=== PATIENT | male | born 1940 | race Caucasian/White ===

== ENCOUNTER 2020-03-02 12:14 | Emergency (ER) | payer MEDICARE, SELFPAY ==
[2020-03-02 12:23] VITALS: BP 116/74; PULSE 90; RESP 20; TEMP 36.3; O2SAT 96
--- NOTE | 2020-03-02 12:48 | ED.URI ---
HPI - URI/Sore Throat General Chief Complaint: Upper Respiratory Infection Stated Complaint: headache/ear pain/jaw pain Time Seen by Provider: 03/02/20 12:49 Source: patient Mode of arrival: ambulatory Limitations: no limitations History of Present Illness HPI Narrative: Jai Figueredo is an 79 yo male with a PMH of Stage 4 prostate CA, GERD. macular degeneration, has who c/o R eye pain and sinus discomfort. States has problems with sinuses for years, has been having congestion in the morning 1 hour upon awakening Patient is being treated for stage IV prostate cancer by [facility], he was told in January that his disease is advancing, they will put him on tablets (questionable Lupron) the cost $10,000 a month and he is unsure whether he will be able to pay for that. Doctors office will try to work with him on cost; scheduled to get a full body scan in the beginning of April before going back [facility] Related Data Home Medications Medication Instructions Recorded Confirmed Prilosec 03/02/20 celecoxib mg 03/02/20 tamsulosin 03/02/20 Allergies Allergy/AdvReac Type Severity Reaction Status Date / Time Penicillins Allergy Unknown Hives Verified 03/02/20 12:54 prednisone Allergy Unknown heartburn Verified 03/02/20 12:54 Review of Systems Review of Systems: Narrative: CONSTITUTIONAL: Denies fever, chills, sweats. EYES: Denies visual changes, redness, discharge. ENT: Denies rhinorrhea, congestion, sore throat, otalgia. CARDIOVASCULAR: Denies chest pain, palpitations, edema. RESPIRATORY: Denies dyspnea, wheezing, cough right-sided sinus tenderness, not dissimilar from the symptoms he normally experiences GASTROINTESTINAL: Denies abdominal pain, nausea, vomiting, diarrhea. GENITOURINARY: Denies dysuria, hematuria, abnormal discharge SKIN: Denies rash or itching. NEUROLOGIC: Denies numbness, or focal weakness. PSYCHIATRIC: Denies anxiety or depression. [facility] Family History Family History Father Family history of gastrointestinal disorder Family history of genitourinary disease Mother Acute myocardial infarction Family history of heart disease in male family member before age 55 Family history of cardiovascular disease Other Family history of arthritis Social History Social History Smoking status: Former smoker Second hand tobacco smoke exposure: No Smoking end date: 09/06/86 Alcohol intake: never Gender identity (if verbalized by the patient): Male Comments At time of signature, I agree with nursing past medical, surgical, social and family history. There is no relevant family history pertinent to the presenting complaint. Exam Narrative: Exam Narrative: GENERAL: This is a well-nourished, well-developed patient, in mild distress. HEAD: normocephalic, atraumatic. EYES: Sclera clear/white. Vision is grossly intact. EARS: External ears normal, auditory canals clear and without drainage, Hearing grossly intact. Wears hearing aids bilaterally NOSE: External nose normal without nasal discharge, nares without redness, no rhinorrhea. THROAT: Mucous membranes moist, posterior pharynx mildly erythema NECK: Neck supple, tender lymph node lower right submandibular CARDIOVASCULAR: Regular rate and rhythm without murmurs, gallops, or rubs. RESPIRATORY: Clear to auscultation. Breath sounds equal bilaterally. No wheezes, rales, or rhonchi. GASTROINTESTINAL: Abdomen soft, non-tender, SKIN: warm, intact with no suspicious lesions or rash, good texture and turgor. NEURO: awake, alert, and oriented to person, place and time. There were no obvious focal neurologic abnormalities. Steady gait EXTREMITIES: Normal range of motion. BACK: Nontender without deformity Course Course Emergency Course: Started on amoxicillin and Claritin Continue use Flonase at home and follow-up with dilan
== END 2020-03-02 13:20 | disposition home or self-care (01) ==
PROVIDERS: Emergency Provider Nurse Practitioner; PCP Internal Medicine
DX: J01.11 Acute recurrent frontal sinusitis (principal); Z87.891 Personal history of nicotine dependence; C61 Malignant neoplasm of prostate; K21.9 Gastro-esophageal reflux disease without esophagitis; H35.30 Unspecified macular degeneration
CPT/HCPCS: 99213; G0463

== ENCOUNTER 2020-07-26 12:58 | Emergency (ER) | payer MEDICARE, SELFPAY | END 2020-07-26 13:12 | disposition left against medical advice (07) | PROVIDERS: Emergency Provider Nurse Practitioner Family | DX: Z53.21 Procedure and treatment not carried out due to patient leaving prior to being seen by health care provider (principal) | CPT/HCPCS: 99199 ==

== ENCOUNTER 2024-02-28 11:19 | Emergency (ER) | payer MEDICARE, SELFPAY ==
[2024-02-28 11:34] VITALS: BP 101/55; PULSE 92; RESP 22; TEMP 36.2; O2SAT 97
--- NOTE | 2024-02-28 11:42 | ED.GENADULT ---
HPI - General Adult General Chief complaint: Urogenital-Male Stated complaint: Poss UTI/infection scrotum Time Seen by Provider: 02/28/24 11:42 Source: patient Mode of arrival: ambulatory Limitations: no limitations History of Present Illness HPI narrative: 83 y/o male with hx COPD, pulmonary fibrosis presented for c/o rash to the scrotum and penis x4 days, burning with urination over the past 2 days. Using Jock itch spray without improvement. denies hematuria, nausea, vomiting, abdominal pain, flank pain, constipation, diarrhea, fevers or chills. States he had a baker catheter removed about one month ago. Pt is accompanied by grandson. States he is scheduled at [facility] today for several tests to qualify for home oxygen. Related Data Home Medications Medication Instructions Recorded Confirmed Prilosec 03/02/20 celecoxib 200 mg capsule mg 03/02/20 tamsulosin 03/02/20 duloxetine 20 mg capsule,delayed mg PO 02/28/24 release finasteride 5 mg tablet mg 02/28/24 methylprednisolone 4 mg tablets in mg 02/28/24 a dose pack prednisone 10 mg tablet mg 02/28/24 Allergies Allergy/AdvReac Type Severity Reaction Status Date / Time Penicillins Allergy Unknown Hives Verified 03/02/20 12:54 prednisone Allergy Unknown heartburn Verified 03/02/20 12:54 Review of Systems Review of Systems: CONSTITUTIONAL: Denies fever, chills EYES: Denies visual changes, redness, or discharge. ENT: Denies rhinorrhea, congestion, sore throat, or otalgia. CARDIOVASCULAR: Denies chest pain, palpitations, or edema. RESPIRATORY: reports chronic cough and dyspnea. GASTROINTESTINAL: Denies abdominal pain, nausea, vomiting, or diarrhea. GENITOURINARY: reports dysuria Denies hematuria. SKIN: reports rash to gabbi area MUSCULOSKELETAL: Denies back pain, joint pain, or myalgia. NEUROLOGIC: Denies headache All systems reviewed & are unremarkable except as noted in HPI and below PMFSH Past Medical History Medical History (Updated 02/28/24 @ 12:06 by Kathy Mccrary APRN) Chronic back pain Chronic sinusitis [facility]MC DJD(carpometacarpal degenerative joint disease), localized primary Hammer toe of left foot Ulnar neuropathy at elbow of right upper extremity Family History Family History Father Family history of gastrointestinal disorder Family history of genitourinary disease Mother Acute myocardial infarction Family history of heart disease in male family member before age 55 Family history of cardiovascular disease Other Family history of arthritis Social History Social History Smoking status: Former smoker Second hand tobacco smoke exposure: No Smoking end date: 09/06/86 Alcohol intake: never Gender identity (if verbalized by the patient): Male Comments At time of signature, I have reviewed and agree with nursing past medical, surgical, social and family history unless otherwise noted. Please see nursing chart for further information. There is no relevant family history pertinent to the presenting complaint Exam Narrative: GENERAL: chronically ill-appearing; in no acute distress. EYES: EOMI. No redness or drainage. Conjunctivae normal. ENT: Mucous membranes pink and moist. No rhinorrhea. CHEST: Labored breathing at rest, pursed lip breathing; speaks full short sentences, No wheezing. Few scattered crackles. HEART: Regular rate and rhythm. No murmur appreciated. Normal peripheral pulses. SKIN: Warm, dry, pale NEURO: No focal deficits. Alert and oriented x3. Gait unsteady, using walker PSYCH: Irritable Course Course Emergency Course: Patient is aware of diagnosis, understands and agrees to treatment plan. Anticipatory guidance given. Patient agrees to follow-up as directed and is aware of reasons to seek care at the emergency department. Portions of this record may mon
--- NOTE | 2024-02-28 12:14 | PC.NURSE ---
Patient has chronic SOB. Is to have a breathing test this afternoon to see if he needs O2. Patient yelling that he needs O2 now, O2 applied at 3 l for short time. Patient refuses to go to ED. Just needs some anitibiotics and some cream . CELLULAR BIOLOGIST in to speak with patient multiple times. Unable to convince him to go to ED.
== END 2024-02-28 12:10 | disposition left against medical advice (07) ==
PROVIDERS: Emergency Provider Nurse Practitioner Family; PCP Internal Medicine
DX: R33.9 Retention of urine, unspecified (principal); Z87.891 Personal history of nicotine dependence
CPT/HCPCS: 99202; G0463